=== PATIENT | male | born 1970 | race Caucasian/White ===

== ENCOUNTER 2022-01-14 08:19 | Day surgery (SDC) | payer BC ==
[~2022-01-14 08:19] MED LIST: Sodium Chloride 0.9% 10 ML Syringe FLUSH PRN
[2022-01-14] MEDS ORDERED: Propofol 200 MG/20 ML SDV IV ONE (08:20)
[2022-01-14] MEDS: Lactated Ringers 1,000 ML IV SCH (08:49)
[2022-01-14 10:27] VITALS: BP 135/92; PULSE 86
== END 2022-01-14 10:16 | disposition home or self-care (01) ==
LOC: FB.SDS 08:19
PROVIDERS: ATTEND Surgery
DX: Z12.11 Encounter for screening for malignant neoplasm of colon (principal); K63.5 Polyp of colon
CPT/HCPCS: 00812-QZ; 88305; J2704; J7120